=== PATIENT | male | born 1940 | race Caucasian/White ===

== ENCOUNTER 2017-07-28 09:10 | Emergency (ER) | payer MEDICARE ==
[~2017-07-28] VITALS: Ht 177.8 cm; Wt 89.4 kg
[2017-07-28] MEDS ORDERED: HYDROMORPHONE 1MG/1ML INJ IV STA (09:52)
[2017-07-28] MEDS ORDERED: ONDANSETRON HCL INJ 2 MG/ML VIAL IV STA (09:52)
[2017-07-28] MEDS ORDERED: DIGOXIN125 MCG PO (09:53)
[2017-07-28] MEDS ORDERED: ATORVASTATIN CA20 MG PO (09:53)
[2017-07-28] MEDS ORDERED: AMLODIPINE BESYL5 MG PO (09:53)
[2017-07-28] MEDS ORDERED: OMEPRAZOLE40 MG PO (09:53)
[2017-07-28] MEDS ORDERED: eliquis PO (09:53)
[2017-07-28] MEDS ORDERED: LEVOTHYROXINE50 MCG PO (09:53)
[2017-07-28 10:47] LABS: BASOPHILS % 0.2 % (0.0-1.0); EOSINOPHILS % 0.3 % (0.0-6.0); HEMOGLOBIN 14.5 g/dL (14.0-18.0); LYMPHOCYTES # (AUTO) 2.4 (1.0-3.2); LYMPHOCYTES % 23.5 % (18.0-39.1); MEAN CORPUSCULAR HEMOGLOBIN 30.8 pg (28-32); MEAN CORPUSCULAR HGB CONC 34.5 g/dL (31-35); MEAN CORPUSCULAR VOLUME 89.2 fL (81-99); MONOCYTES # (AUTO) 0.9 (0.2-0.8); MONOCYTES % 8.4 % (4.4-11.3); NEUTROPHILS # (AUTO) 6.9 (2.1-6.9); NEUTROPHILS % 67.1 % (38.7-80.0); PLATELET COUNT 196 x10e3/uL (140-360); RED BLOOD COUNT 4.71 x10e6/uL (4.3-5.7); RED CELL DISTRIBUTION WIDTH 14.1 % (11.7-14.4)
--- NOTE | 2017-07-28 10:49 | Diagnostic Imaging Report ---
History: Low back pain Comparison studies: None Technique: Axial images were obtained through the lumbar spine were obtained. Coronal and sagittal images reconstructed from the axial data. Intravenous contrast: None Findings: The usual 5 non-rib bearing lumbar vertebral bodies are present. Alignment: Normal lordosis. Mild leftward curvature centered at L2-3 Soft tissues: 2.8 cm right adrenal nodule with a Hounsfield value of 20 (series 4 image 16). Paraspinal muscles: Unremarkable. Sacroiliac joints: Mild degenerative changes Vertebrae: No fractures, infection or neoplasm. Degenerative changes: L1-L2: Moderately degenerated greater on the right Patent spinal canal and foramina. No discontinuation. L2-L3: Mildly degenerated disc on the right. Mild spinal canal stenosis due to a disc bulge and facet arthrosis. No significant foraminal stenosis. L3-L4: Relatively normal disc. Moderate spinal canal stenosis due to a disc bulge and mild facet arthrosis. Patent foramina. L4-L5: Mildly degenerated disc. Moderate spinal canal stenosis due to a disc bulge and facet arthrosis. Patent foramina. L5-S1: Mildly degenerated disc. Patent spinal canal. No significant foraminal stenosis in spite of moderate facet arthrosis. IMPRESSION: No acute abnormalities. No fractures or subluxations. Degenerative changes, 1. Mild left curvature centered at L2-3 2. Mildly degenerated discs also on the right from L1 through S1. 3. Moderate degenerative spinal canal stenosis at L3-4 and L4-5. 4. No significant foraminal stenosis 5. No disc herniation 6. Indeterminant 2.8 cm right adrenal nodule. Further workup with adrenal protocol CT or comparison to old films to evaluate for stability is recommended. Signed by: Dr. Abel Goss M.D. on 07/28/2017 5:51 PM
[2017-07-28 10:59] LABS: INR 1.32; PARTIAL THROMBOPLASTIN TIME 32.1 seconds (23.8-35.5); PROTHROMBIN TIME 15.4 seconds (11.9-14.5)
[2017-07-28 11:04] LABS: ANION GAP 11.2 mmol/L (8-16); BLOOD UREA NITROGEN 15 mg/dL (7-26); BUN/CREATININE RATIO 19 (6-25); CALCIUM 9.6 mg/dL (8.4-10.2); CARBON DIOXIDE 23 mmol/L (22-29); CHLORIDE 109 mmol/L (98-107); CREATININE, SERUM 0.81 mg/dL (0.72-1.25); EST GLOMERULAR FILTRATION RATE > 60 ML/MIN (60-); GLUCOSE 103 mg/dL (74-118); POTASSIUM 4.2 mmol/L (3.5-5.1); SODIUM 139 mmol/L (136-145)
[2017-07-28] MEDS ORDERED: KETOROLAC TROMETHAMINE 30 MG/ML VIAL IV STA (12:40)
== END 2017-07-28 13:43 | disposition home or self-care (01) ==
LOC: ER 09:10
DX: M54.5 Low back pain (principal); S39.012A Strain of muscle, fascia and tendon of lower back, initial encounter; I10 Essential (primary) hypertension; I48.91 Unspecified atrial fibrillation; E03.9 Hypothyroidism, unspecified
CPT/HCPCS: 36415; 72131; 80048; 85025; 85610; 85730; 99284; J1170; J1885; J2405

== ENCOUNTER → 2017-10-07 | Outpatient (CLI) | payer MEDICARE ==
[~2017-10-07] MED LIST: AMLODIPINE BESYL5 MG PO; ATORVASTATIN CA20 MG PO; DIGOXIN125 MCG PO; IOPAMIDOL 370 MG/ML 200 ML INFUS..BTL INJ ONE; LEVOTHYROXINE50 MCG PO; OMEPRAZOLE40 MG PO; SODIUM CHLORIDE 0.9% 50ML 50 ML ONE; eliquis PO
[2017-10-07 10:15] LABS: BLOOD UREA NITROGEN 17 mg/dL (7-26); BUN/CREATININE RATIO 18 (6-25); CREATININE, SERUM 0.93 mg/dL (0.72-1.25); EST GLOMERULAR FILTRATION RATE > 60 ML/MIN (60-)
--- NOTE | 2017-10-07 11:42 | Diagnostic Imaging Report ---
EXAM: CT Abdomen WITHOUT and WITH contrast INDICATION: \S\ADRENAL NODULE COMPARISON: None. TECHNIQUE: Abdomen was scanned utilizing a multidetector helical scanner from the lung base to the iliac crest before and after administration of IV contrast. Coronal and sagittal reformations were obtained. Routine protocol was performed. Scan was performed when during portal venous phase. IV CONTRAST: 100 mL of Isovue-370 ORAL CONTRAST: Water COMPLICATIONS: None RADIATION DOSE: Total DLP: 1011.71 mGy*cm Estimated effective dose: (DLP x 0.015 x size factor) mSv CTDIvol has been reviewed. It is below the limits set by the Radiation Protocol Committee (RPC). FINDINGS: LINES and TUBES: None. LOWER THORAX: Cardiac lead in the right ventricle. Left basilar atelectasis. HEPATOBILIARY: No focal hepatic lesions. No biliary ductal dilation. GALLBLADDER: Absent SPLEEN: No splenomegaly. PANCREAS: No focal masses or ductal dilatation. ADRENALS: Right adrenal 2.2 cm nodule measures 17 HU (pre-), 86 HU (venous), and 34 HU (delay) with absolute washout of 75.7% compatible with adenoma. No left adrenal nodules KIDNEYS/URETERS: Kidneys enhance symmetrically. No hydronephrosis. There are scattered too small to characterize hypodensities, likely benign. No stones. GI TRACT: No abnormal distention, wall thickening, or evidence of bowel obstruction. LYMPH NODES: No lymphadenopathy. VESSELS: There is mild atherosclerotic disease in the aorta and major arterial branches. PERITONEUM / RETROPERITONEUM: No free air or fluid. BONES: Unremarkable. SOFT TISSUES: Unremarkable. IMPRESSION: Right adrenal nodule is compatible with an adenoma. Signed by: DR. Bassem Avitia MD on 10/07/2017 11:39 AM
== END ==
LOC: CT 09:32
PROVIDERS: ATTEND Internal Medicine
DX: M54.5 Low back pain (principal); R19.09 Other intra-abdominal and pelvic swelling, mass and lump; R93.8 Abnormal findings on diagnostic imaging of other specified body structures
CPT/HCPCS: 36415; 74170; 82565; 84520; Q9967

== ENCOUNTER → 2019-04-16 | Outpatient (CLI) | payer MEDICARE ==
[~2019-04-16] MED LIST changes: +SODIUM CHLORIDE 0.9% 500ML 500 ML ONE
[2019-04-16 09:00] LABS: CREATININE, SERUM 1.2 mg/dL (0.72-1.25)
--- NOTE | 2019-04-16 10:23 | Diagnostic Imaging Report ---
EXAM: CT Abdomen and Pelvis WITH contrast INDICATION: ^[id number] ^0930 ^GEN ABD PAIN COMPARISON: CT abdomen 10/07/2017 TECHNIQUE: Abdomen and pelvis were scanned utilizing a multidetector helical scanner from the lung base to the pubic symphysis after administration of IV contrast. Coronal and sagittal reformations were obtained. Routine protocol was performed. Scan was performed when during portal venous phase. IV CONTRAST: 100 mL of Isovue 370 ORAL CONTRAST: Water COMPLICATIONS: None RADIATION DOSE: Total DLP: 612 mGy*cm Estimated effective dose: (DLP x 0.015 x size factor) mSv CTDIvol has been reviewed. It is below the limits set by the Radiation Protocol Committee (RPC). Dose modulation, iterative reconstruction, and/or weight based adjustment of the mA/kV was utilized to reduce the radiation dose to as low as reasonably achievable. FINDINGS: LINES and TUBES: None. LOWER THORAX: Few tiny micronodules in the lung bases are unchanged. A 1.8 x 1.9 cm left basilar subpleural masslike opacity (image 17) is not significantly changed in size and appearance when compared to the previous study from September 2017. HEPATOBILIARY: No focal hepatic lesions. No biliary ductal dilation. GALLBLADDER: Surgically absent. SPLEEN: No splenomegaly. PANCREAS: No focal masses or ductal dilatation. ADRENALS: Unchanged 2.2 cm right adrenal nodule consistent with an adenoma. No left adrenal nodule. KIDNEYS/URETERS: Kidneys enhance symmetrically. No hydronephrosis. No cystic or solid mass lesions. No stones. GI TRACT: Questionable focal thickening of the fundal posterior mucosa (image 20 series 2). No obvious bowel mass or evidence of bowel obstruction. Sigmoid diverticulosis. PELVIC ORGANS/BLADDER: Minimal nonspecific urinary bladder wall thickening. Grossly unremarkable prostate gland. LYMPH NODES: No lymphadenopathy. VESSELS: Scattered vascular calcifications. PERITONEUM / RETROPERITONEUM: No free air or fluid. BONES: No acute osseous abnormality. SOFT TISSUES: Small fat-containing left inguinal hernia. IMPRESSION: 1. Questionable focal gastric fundal mucosal thickening. Given the provided history of abdominal pain, further evaluation with upper endoscopy to exclude gastric mass is suggested. 2. Otherwise, no acute abdominal or pelvic abnormality. 3. Nonspecific 1.8 x 1.9 cm left basilar subpleural opacity is unchanged in size when compared to the previous study from 2017. A follow-up CT scan in 6 months is recommended to document 2 year stability. 4. Unchanged right adrenal adenoma. Signed by: Elie Quinteros MD on 04/16/2019 10:20 AM
== END ==
LOC: CT 08:16
PROVIDERS: ATTEND Internal Medicine
DX: R10.84 Generalized abdominal pain (principal)
CPT/HCPCS: 36415; 74177; 82565; 84520; J7040; Q9967

== ENCOUNTER → 2019-05-02 | Day surgery (SDC) | payer MEDICARE ==
[~2019-05-02] MED LIST changes: +AMIODARONE HCL200 MG PO; +FENTANYL CITRATE/PF 100MCG/2 ML INJ ONE; -IOPAMIDOL 370 MG/ML 200 ML INFUS..BTL INJ ONE; +PROPOFOL IV EMULSION 10 MG/ML 50 ML VIAL ONE; -SODIUM CHLORIDE 0.9% 500ML 500 ML ONE; -SODIUM CHLORIDE 0.9% 50ML 50 ML ONE
--- OUTSIDE RECORDS SUMMARY | 2019-05-02 07:02 | XMS REPORT ---
Author Author [facility] Address Unknown Phone Unavailable Care Team Providers Care Oyster Culler Name Role Phone SEAMUS JULIAN Unavailable Unavailable Ale ALVARADO Unavailable Unavailable Problems This patient has no known problems. Allergies, Adverse Reactions, Alerts This patient has no known allergies or adverse reactions. Medications This patient has no known medications. Results Test Description Test Time Test Comments Text Results Atomic Results Result Comments CT ABDOMEN/PELVIS W 2019-04-16 10:12:00 [facility] [address] [address] Patient Name: LILI PARIS MR #: [id number] : 1940 Age/Sex: 78/M Req #: [id number] Adm Physician: Ordered by: SEAMUS JULIAN MD Report #: [id number] Location: CT Room/Bed: Procedure: [id number] CT/CT ABDOMEN/PELVIS W Exam Date: 04/16/19 Exam Time: 929 REPORT STATUS: Signed EXAM: CT Abdomen and Pelvis WITH contrast INDICATIO N: [id number] GEN ABD PAIN COMPARISON: CT abdomen 10/07/2017 TECHNIQUE: Abdomen and pelvis were scanned utilizing a multidetector helical scanner from the lung base to the pubic symphysis after administration of IV contrast. Coronal and sagittal reformations were obtained. Routine protocol was performed. Scan was performed when during portal venous phase. IV CONTRAST: 100 mL of Isovue 370 ORAL CONTRAST: Water COMPLICATIONS: None RADIATION DOSE: Total DLP: 612 mGy*cm Estimated effective dose: (DLP x 0.015 x size factor) mSv CTDIvol has been reviewed. It is below the limits set by the Radiation Protocol Committee (RPC). Dose modulation, iterative reconstruction, and/or weight based adjustment of the mA/kV was utilized to reduce the radiation dose to as low as reasonably achievable. FINDINGS: LINES and TUBES: None. LOWER THORAX: Few tiny micronodules in the lung bases are unchanged. A 1.8 x 1.9 cm left basilar subpleural masslike opacity (image 17) is not significantly changed in size and appearance when compared to the previous study from September 2017. HEPATOBILIARY: No focal hepatic lesions. No biliary ductal dilation. GALLBLADDER: Surgically absent. SPLEEN: No splenomegaly. PANCREAS: No focal masses or ductal dilatation. ADRENALS: Unchanged 2.2 cm right adrenal nodule consistent with an adenoma. No left adrenal nodule. KIDNEYS/URETERS: Kidneys enhance symmetrically. No hydronephrosis. No cystic or solid mass lesions. No stones. GI TRACT: Questionable focal thickening of the fundal posterior mucosa (image 20 series 2). No obvious bowel mass or evidence of bowel obstruction. Sigmoid diverticulosis. PELVIC ORGANS/BLADDER: Minimal nonspecific urinary bladder wall thickening. Grossly unremarkable prostate gland. LYMPH NODES: No lymphadenopathy. VESSELS: Scattered vascular calcifications. PER ITONEUM / RETROPERITONEUM: No free air or fluid. BONES: No acute osseous abnormality. SOFT TISSUES: Small fat-containing left inguinal hernia. IMPRESSION: 1. Questionable focal gastric fundal mucosal thickening. Given the provided history of abdominal pain, further evaluation with upper endoscopy to exclude gastric mass is suggested. 2. Otherwise, no acute abdominal or pelvic abnormality. 3. Nonspecific 1.8 x 1.9 cm left basilar subpleural opacity is unchanged in size when compared to the previous study from 2017. A follow-up CT scan in 6 months is recommended to document 2 year stability. 4. Unchanged right adrenal adenoma. Signed by: Deepak Olguin MD on 04/16/2019 10:20 AM Dictated By: DEEPAK OLGUIN MD 1020 Transcribed By: WILNER on 04/16/19 1020 COPY TO: SEAMUS JULIAN MD CT ABDOMEN WOW 2017-10-07 11:27:00 [facility] [address] [address] Patient Name: LILI PARIS MR #: [id number] : 1940 Age/Sex: 77/M Req #: [id number] Adm Physician: Ordered by: SEAMUS JULIAN MD Report #: [id number] Location: CT Room/Bed: Procedure: [id number] CT/CT ABDOMEN WOW Exam Date: 10/07/17 Exam Time: 1020 REPORT STATUS: Signed EXAM: CT Abdomen WITHOUT and WITH contrast INDICATION: COMPARISON: None. TECHNIQUE: Abdomen was scanned utilizing a multidetector helical scanner from the lung base to the iliac crest before and after administration of IV contrast. Coronal and sagittal reformations were obtained. Routine protocol was performed. Scan was performed when during portal venous phase. IV CONTRAST: 100 mL of Isovue-370 ORAL C ONTRAST: Water COMPLICATIONS: None RADIATION DOSE: Total DLP: 1011.71 mGy*cm Estimated effective dose: (DLP x 0.015 x size factor) mSv CTDIvol has been reviewed. It is below the limits set by the Radiation Protocol Committee (RPC). FINDINGS: LINES and TUBES: None. LOWER THORAX: Cardiac lead in the right ventricle. Left basilar atelectasis. HEPATOBILIARY: No focal hepatic lesions. No biliary ductal dilation. GALLBLADDER: Absent SPLEEN: No splenomegaly. PANCREAS: No focal masses or ductal dilatation. ADRENALS: Right adrenal 2.2 cm nodule measures 17 HU (pre-), 86 HU (venous), and 34 HU (delay) with absolute washout of 75.7% compatible with adenoma. No left adrenal nodules KIDNEYS/URETERS: Kidneys enhance symmetrically. No hydronephrosis. There are scattered too small to characterize hypodensities, likely benign. No stones. GI TRACT: No abnormal distention, wall thickening, or evidence of bowel obstruction. LYMPH NODES: No lymphadenopathy. VESSELS: There is mild atherosclerotic disease in the aorta and major arterial branches. PERITONEUM / RETROPERITONEUM: No free air or fluid. BONES: Unremarkable. SOFT TISSUES: Unremarkable. IMPRESSION: Right adrenal nodule is compatible with an adenoma. Signed by: DR. Bassem Del Castillo MD on 10/07/2017 11:39 AM Dictated By: BASSEM DEL CASTILLO MD 113 Transcribed By: WILNRE on 10/07/17 113 COPY TO: SEAMUS JULIAN MD CT LUMBAR SPINE WO 2017-07-28 10:40:[address] [address] Patient Name: LILI PARIS MR #: [id number] : 1940 Age/Sex: 77/M Req #: [id number] Adm Physician: Ordered by: CHAR ALVARADO MD Report #: [id number] Location: ER Room/Bed: Procedure: [id number] CT/CT LUMBAR SPINE WO Exam Date: 07/28/17 Exam Time: 1015 REPORT STATUS: Signed History: Low back pain Comparison studies: None Technique: Axial images were obtained through the lumbar spine were obtained. Coronal and sagittal images reconstructed from the axial data. Intravenous contrast: None Findings: The usual 5 non-rib bearing lumbar vertebral bodies are present. Alignment: Normal lordosis. Mild leftward curvature centered at L2-3 Soft tissues: 2.8 cm right adrenal nodule with a Hounsfield value of 20 (series 4 image 16). Paraspinal muscles: Unremarkable. Sacroiliac joints: Mild degenerative changes Vertebrae: No fractures, infection or neoplasm. Degenerative changes: L1-L2: Moderately degenerated greater on the right Patent spinal canal and foramina. No discontinuation. L2-L3: Mildly degenerated disc on the right. Mild spinal canal stenosis due to a disc bulge and facet arthrosis. No significant foraminal stenosis. L3-L4: Relatively normal disc. Moderate spinal canal stenosis due to a disc bulge and mild facet arthrosis. Patent foramina. L4-L5: Mildly degenerated disc. Moderate spinal canal stenosis due to a disc bulge and facet arthrosis. Patent foramina. L5-S1: Mildly degenerated disc. Patent spinal canal. No significant foraminal stenosis in spite of moderate facet arthrosis. IMPRESSION: No acute abnormalities. No fractures or subluxations. Degenerative changes, 1. Mild left curvature centered at L2-3 2. Mildly degenerated discs also on the right from L1 through S1. 3. Moderate degenerative spinal canal stenosis at L3-4 and L4-5. 4. No significant foraminal stenosis 5. No disc herniation 6. Indeterminant 2.8 cm right adrenal nodule. Further workup with adrenal protocol CT or comparison to old films to evaluate for stability is recommended. Signed by: Dr. Abel Goss M.D. on 07/28/2017 5:51 PM Dictated By: ABEL GOSS MD, MD 50 Transcribed By: WILNER on 07/28/171750 COPY TO: CHAR ALVARADO MD
[2019-05-02 08:45] VITALS: BP 138/82
--- NOTE | 2019-05-02 11:24 | Operative Report ---
DATE OF PROCEDURE: 05/02/2019 SURGEON: Cory Sheets MD PROCEDURES PERFORMED: Esophagogastroduodenoscopy with biopsies. INDICATIONS FOR EGD: Bloating, nausea, and vomiting. MEDICATIONS: The patient was done under MAC. Please see anesthesiologist's note. PROCEDURE IN DETAIL: With the patient in left lateral decubitus position, a flexible fiberoptic Olympus gastroscope was introduced into the esophagus under direct visualization without any difficulty. Some focal varicosities were noted in the esophagus without active bleeding or stigmata of recent hemorrhage. The scope was then advanced with ease into the stomach traversing a small sliding hiatal hernia. Mucosa overlying the antrum and the body revealed some patchy erythema and moderate edema, and biopsies were obtained, sent to stain for H pylori. There were some several nodules noted in the body of the stomach and those were biopsied. The pylorus was of normal contour and shape, it was intubated with ease and the scope was advanced all the way to the second portion of the duodenum. There was a prominent fold noted in the second portion of the duodenum, distal to the ampulla and that was biopsied. The scope was then withdrawn back into the stomach and retroflexed, mucosa overlying the fundus and cardia appeared to be within normal limits. The scope was then straightened out, it was subsequently withdrawn. The patient tolerated the procedure well. IMPRESSION: 1. Focal varicosities, esophagus without active bleeding or stigmata of recent hemorrhage. 2. Small sliding hiatal hernia. 3. Gastritis, biopsied, biopsies sent to stain for Helicobacter pylori. 4. Gastric nodules, body, biopsies obtained. 5. Prominent fold 2nd portion of the duodenum distal to the ampulla, biopsied. PLAN: Follow up histology. I initiate Protonix 40 mg one p.o. q.a.m. a.c., Carafate 1 g p.o. a.c. t.i.d. and at bedtime. Cory Sheets MD [facility] /[id number] cc: MD Sukhjinder Martinez MD
== END | disposition home or self-care (01) ==
LOC: OR 05:54
PROVIDERS: ATTEND Internal Medicine Gastroenterology
DX: K29.70 Gastritis, unspecified, without bleeding (principal); I85.00 Esophageal varices without bleeding; K31.89 Other diseases of stomach and duodenum; K21.9 Gastro-esophageal reflux disease without esophagitis; K44.9 Diaphragmatic hernia without obstruction or gangrene; R19.7 Diarrhea, unspecified; K85.90 Acute pancreatitis without necrosis or infection, unspecified; I10 Essential (primary) hypertension; E78.5 Hyperlipidemia, unspecified; I44.0 Atrioventricular block, first degree; I48.91 Unspecified atrial fibrillation; N20.0 Calculus of kidney; E03.9 Hypothyroidism, unspecified; M54.9 Dorsalgia, unspecified; R05 Cough; Z01.810 Encounter for preprocedural cardiovascular examination; Z79.02 Long term (current) use of antithrombotics/antiplatelets; Z95.0 Presence of cardiac pacemaker
CPT/HCPCS: 43239; 88305; 88312; 93005; J2704; J3010

== ENCOUNTER → 2019-07-30 | Outpatient (CLI) | payer MEDICARE, OTHER ==
[~2019-07-30] MED LIST changes: -FENTANYL CITRATE/PF 100MCG/2 ML INJ ONE; -PROPOFOL IV EMULSION 10 MG/ML 50 ML VIAL ONE
--- NOTE | 2019-07-30 16:44 | Diagnostic Imaging Report ---
Small bowel follow-through Comparison: None Clinical History: Diarrhea for the past few months Total number of images submitted: Multiple Burning Supervisor radiographs were obtained. After oral ingestion of barium, overhead photospot x-ray images acquired periodically until the contrast medium across the ileocecal valve. Spot compression views of the areas of interest were obtained additionally if needed. Report: Burning Supervisor: 5 lumbar type vertebrae. 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 Surgical amber suggestive of cholecystectomy. No calculi. Lung bases unremarkable. Pelvis unremarkable. There is quick passage of the orally administered barium into proximal jejunum. No gross filling defects or mucosal fold abnormality seen in the stomach and duodenum. The orally administered contrast medium crosses the ileocecal valve at 4 hours film. There is no small bowel obstruction. The mucosal fold pattern of small bowel is unremarkable. There is no large gross intraluminal filling defect. There is no extrinsic mass effect on the small bowel. Terminal ileum and the Ileocecal valve is not visualized. Impression: Unremarkable small bowel follow through study. Signed by: Manish Lagos MD on 07/30/2019 4:41 PM
== END ==
LOC: DX 11:07
PROVIDERS: ATTEND Internal Medicine Gastroenterology
DX: R19.7 Diarrhea, unspecified (principal)
CPT/HCPCS: 74250; 87635

== ENCOUNTER → 2020-06-11 | Outpatient (CLI) | payer MEDICARE | LOC: CT 07:09 | PROVIDERS: ATTEND Internal Medicine | DX: M54.30 Sciatica, unspecified side (principal) | CPT/HCPCS: 72131 ==

== ENCOUNTER → 2021-03-24 | Day surgery (SDC) | payer MEDICARE ==
[2021-03-20 09:05] LABS: BASOPHILS % 0.2 % (0.0-1.0); EOSINOPHILS # (AUTO) 0.1 (0.0-0.4); EOSINOPHILS % 1.9 % (0.0-6.0); HEMATOCRIT 42.6 % (38.2-49.6); HEMOGLOBIN 13.7 g/dL (14.0-18.0); LYMPHOCYTES # (AUTO) 2.2 (1.0-3.2); LYMPHOCYTES % 45.7 % (18.0-39.1); MEAN CORPUSCULAR HEMOGLOBIN 30.6 pg (28-32); MEAN CORPUSCULAR HGB CONC 32.2 g/dL (31-35); MEAN CORPUSCULAR VOLUME 95.1 fL (81-99); MONOCYTES # (AUTO) 0.4 (0.2-0.8); MONOCYTES % 8.3 % (4.4-11.3); NEUTROPHILS # (AUTO) 2.1 (2.1-6.9); NEUTROPHILS % 43.7 % (38.7-80.0); PLATELET COUNT 158 x10e3/uL (140-360); RED BLOOD COUNT 4.48 x10e6/uL (4.3-5.7); RED CELL DISTRIBUTION WIDTH 13.4 % (11.7-14.4)
[~2021-03-24] MED LIST changes: +BP MED PO; +EPHEDRINE SULFATE INJ 50 MG/ML VIAL ONE; +GLUCAGON FOR INJ 1 MG VIAL ONE; +HYOSCYAMINE SULFATE 0.5 MG/ML INJ ONE; +PANTOPRAZOLE SO40 MG PO; +POVIDONE IODINE 0.05% 0.05 % ML PO ONE; +PROPOFOL IV EMULSION 10 MG/ML 20 ML VIAL ONE
[2021-03-24 13:37] VITALS: BP 125/85
== END | disposition home or self-care (01) ==
LOC: OR 10:33
PROVIDERS: ATTEND Internal Medicine Gastroenterology
DX: K29.70 Gastritis, unspecified, without bleeding (principal); D12.2 Benign neoplasm of ascending colon; D12.3 Benign neoplasm of transverse colon; K51.50 Left sided colitis without complications; I85.00 Esophageal varices without bleeding; K21.9 Gastro-esophageal reflux disease without esophagitis; K44.9 Diaphragmatic hernia without obstruction or gangrene; K64.8 Other hemorrhoids; Z71.3 Dietary counseling and surveillance; I48.91 Unspecified atrial fibrillation; E03.9 Hypothyroidism, unspecified; I10 Essential (primary) hypertension; Z01.812 Encounter for preprocedural laboratory examination; Z20.822 Contact with and (suspected) exposure to COVID-19; Z79.02 Long term (current) use of antithrombotics/antiplatelets; Z79.899 Other long term (current) drug therapy; Z68.29 Body mass index [BMI] 29.0-29.9, adult; Z95.0 Presence of cardiac pacemaker
CPT/HCPCS: 36415; 45380; 45384; 45385; 85025; 88305; 88312; U0002; 43239; 45378; J1610; J1980

== ENCOUNTER → 2021-11-20 | Outpatient (CLI) | payer MEDICARE ==
[~2021-11-20] MED LIST changes: -EPHEDRINE SULFATE INJ 50 MG/ML VIAL ONE; -GLUCAGON FOR INJ 1 MG VIAL ONE; -HYOSCYAMINE SULFATE 0.5 MG/ML INJ ONE; +IOPAMIDOL 370 MG/ML 100 ML INFUS..BTL INJ ONE; -POVIDONE IODINE 0.05% 0.05 % ML PO ONE; -PROPOFOL IV EMULSION 10 MG/ML 20 ML VIAL ONE
[2021-11-20 08:50] LABS: CREATININE, SERUM 1.07 mg/dL (0.72-1.25)
== END ==
LOC: CT 07:45
PROVIDERS: ATTEND Internal Medicine Gastroenterology
DX: R10.9 Unspecified abdominal pain (principal); E86.0 Dehydration; I48.91 Unspecified atrial fibrillation
CPT/HCPCS: 36415; 74177; 82565; 84520; Q9967

== ENCOUNTER 2022-05-27 17:38 | Emergency (ER) | payer MEDICARE ==
[~2022-05-27] VITALS: Ht 177.8 cm; Wt 89.4 kg
[~2022-05-27 17:38] MED LIST changes: +ALBUTEROL2.5 MG/3 M NEB; +AUGMENTIN 500-1 EACH PO; +AZITHROMYCIN250 MG PO; +BENZONATATE100 MG PO; +COMPRESSOR NEB1 EACH; -IOPAMIDOL 370 MG/ML 100 ML INFUS..BTL INJ ONE; +PROAIR DIGIHAL90 MCG INH
[2022-05-27 19:21] VITALS: BP 137/82
== END 2022-05-27 19:23 | disposition home or self-care (01) ==
LOC: ER 18:01
DX: S01.111A Laceration without foreign body of right eyelid and periocular area, initial encounter (principal); W17.89XA Other fall from one level to another, initial encounter; Y92.89 Other specified places as the place of occurrence of the external cause; Z79.01 Long term (current) use of anticoagulants; I10 Essential (primary) hypertension; E78.5 Hyperlipidemia, unspecified; I48.91 Unspecified atrial fibrillation; E03.9 Hypothyroidism, unspecified; K21.9 Gastro-esophageal reflux disease without esophagitis
CPT/HCPCS: 70450; 72125; 99283

== ENCOUNTER 2024-09-29 06:45 | Emergency (ER) | payer MEDICARE ==
[~2024-09-29] VITALS: Ht 177.8 cm; Wt 89.4 kg
[2024-09-29 08:04] LABS: BASOPHILS % 0.2 % (0.0-1.0); EOSINOPHILS % 0.0 % (0.0-6.0); LYMPHOCYTES % 17.7 % (18.0-39.1); MONOCYTES % 16.5 % (4.4-11.3); NEUTROPHILS % 65.4 % (38.7-80.0); RED CELL DISTRIBUTION WIDTH 15.6 % (11.7-14.4)
[2024-09-29 08:17] LABS: INR 1.26
[2024-09-29 08:27] LABS: CORONAVIRUS COVID-19 AG NEGATIVE (NEGATIVE)
[2024-09-29 08:28] LABS: EST GLOMERULAR FILTRATION RATE 61.0 ML/MIN (>=60)
[2024-09-29 09:09] LABS: EPITHELIAL CELLS,URINE MODERATE /LPF; LEUKOCYTE ESTERASE ,URINE NEGATIVE (NEGATIVE); PROTEIN,URINE DIPSTICK 1+ (NEGATIVE); URINE UROBILINOGEN 0.2 mg/dL (0.2 - 1)
[2024-09-29] MEDS: SODIUM CHLORIDE 0.9% 500ML 500 ML IV ONE (09:33)
[2024-09-29 09:36] VITALS: TEMP 98.1
[2024-09-29] MEDS ORDERED: MEDROL4 M2 PO (10:58)
[2024-09-29] MEDS ORDERED: CEFDINIR300 MG PO (11:05)
[2024-09-29 11:23] VITALS: PULSE 70; RESP 18; O2SAT 97
== END 2024-09-29 11:25 | disposition home or self-care (01) ==
LOC: ER 07:47
DX: R05.9 Cough, unspecified (principal); J06.9 Acute upper respiratory infection, unspecified; I10 Essential (primary) hypertension; I48.91 Unspecified atrial fibrillation; E78.5 Hyperlipidemia, unspecified; K21.9 Gastro-esophageal reflux disease without esophagitis; E03.9 Hypothyroidism, unspecified; R94.31 Abnormal electrocardiogram [ECG] [EKG]; Z96.653 Presence of artificial knee joint, bilateral
CPT/HCPCS: 36415; 71046; 80053; 81001; 82550; 83735; 83880; 84484; 85025; 85610; 85730; 87040; 87086; 87426; 93005; 99283; J7040

== ENCOUNTER 2024-10-01 04:07 | Emergency (ER) | payer MEDICARE, OTHER ==
[~2024-10-01] VITALS: Ht 177.8 cm; Wt 89.8 kg
[~2024-10-01 04:07] MED LIST changes: +CEFDINIR300 MG PO; +MEDROL4 M2 PO
[2024-10-01] MEDS ORDERED: SODIUM CHLORIDE FLUSH 10 ML SYR IV PRN (04:30)
[2024-10-01 04:35] LABS: BASOPHILS % 0.2 % (0.0-1.0); EOSINOPHILS % 1.1 % (0.0-6.0); LYMPHOCYTES % 39.2 % (18.0-39.1); MONOCYTES % 14.2 % (4.4-11.3); NEUTROPHILS % 45.1 % (38.7-80.0); RED CELL DISTRIBUTION WIDTH 15.7 % (11.7-14.4)
[2024-10-01 04:53] LABS: EST GLOMERULAR FILTRATION RATE 72.0 ML/MIN (>=60)
[2024-10-01 04:53] LABS: CORONAVIRUS COVID-19 AG POSITIVE (NEGATIVE)
[2024-10-01 05:00] VITALS: TEMP 98.4
[2024-10-01 06:00] VITALS: PULSE 70; RESP 21
[2024-10-01] MEDS ORDERED: PAXLOVID 150-11 EAC2 PO (07:14)
[2024-10-01] MEDS ORDERED: PREDNISONE20 MG PO (07:14)
[2024-10-01] MEDS ORDERED: VENTOLIN HFA18 GM INH (07:14)
[2024-10-01 07:50] VITALS: BP 142/93; PULSE 70; RESP 19; O2SAT 96
== END 2024-10-01 07:50 | disposition home or self-care (01) ==
LOC: ER 04:11
DX: R06.02 Shortness of breath (principal); U07.1 COVID-19; R05.9 Cough, unspecified; I10 Essential (primary) hypertension; I48.91 Unspecified atrial fibrillation; E78.5 Hyperlipidemia, unspecified; E03.9 Hypothyroidism, unspecified; K21.9 Gastro-esophageal reflux disease without esophagitis; Z95.810 Presence of automatic (implantable) cardiac defibrillator; Z96.653 Presence of artificial knee joint, bilateral
CPT/HCPCS: 36415; 71250; 80053; 83735; 83880; 84484; 85025; 93005; 94760; 99283

== ENCOUNTER → 2024-11-13 | Day surgery (SDC) | payer MEDICARE, OTHER ==
[2024-11-06 09:49] LABS: BASOPHILS % 0.1 % (0.0-1.0); EOSINOPHILS % 1.4 % (0.0-6.0); LYMPHOCYTES % 19.1 % (18.0-39.1); MONOCYTES % 7.4 % (4.4-11.3); NEUTROPHILS % 71.6 % (38.7-80.0); RED CELL DISTRIBUTION WIDTH 16.0 % (11.7-14.4)
[~2024-11-13] MED LIST changes: +ARICEPT10 MG PO; +ASPIRIN81 MG PO; +FLOMAX0.4 MG PO; +GLUCAGON FOR INJ 1 MG VIAL ONE; +HYOSCYAMINE SULFATE 0.5 MG/ML INJ ONE; +LACTATED RINGER'S 1,000 ML ONE; +LIDOCAINE HCL 2% LOCAL INJ 5 ML SDV VIAL INJ ONE; +LIPITOR20 MG PO; +LYRICA50 MG PO; +METOCLOPRAMIDE HCL 10 MG/2ML VIAL ONE; +PAXLOVID 150-11 EAC2 PO; +POTASSIUM CHLO10 ME1 PO; +PREDNISONE20 MG PO; +PROPOFOL IV EMULSION 10 MG/ML 20 ML VIAL ONE; +PROPOFOL IV EMULSION 50 ML IV ONE; +VENTOLIN HFA18 GM INH; +ZEGERID OTC 201 EACH
[2024-11-13 13:48] VITALS: TEMP 97.5
[2024-11-13 14:30] VITALS: BP 136/92; PULSE 69; RESP 16; O2SAT 97
== END | disposition home or self-care (01) ==
LOC: OR 10:34
PROVIDERS: ATTEND Internal Medicine Gastroenterology
DX: K29.80 Duodenitis without bleeding (principal); K29.50 Unspecified chronic gastritis without bleeding; I85.00 Esophageal varices without bleeding; K44.9 Diaphragmatic hernia without obstruction or gangrene; K31.7 Polyp of stomach and duodenum; D12.2 Benign neoplasm of ascending colon; D12.5 Benign neoplasm of sigmoid colon; K63.5 Polyp of colon; R63.4 Abnormal weight loss; Z68.25 Body mass index [BMI] 25.0-25.9, adult; K57.30 Diverticulosis of large intestine without perforation or abscess without bleeding; K64.8 Other hemorrhoids; I10 Essential (primary) hypertension; E03.9 Hypothyroidism, unspecified; E78.00 Pure hypercholesterolemia, unspecified; I48.91 Unspecified atrial fibrillation; Z86.16 Personal history of COVID-19; Z95.0 Presence of cardiac pacemaker; Z79.82 Long term (current) use of aspirin; Z79.890 Hormone replacement therapy; Z79.899 Other long term (current) drug therapy; Z80.0 Family history of malignant neoplasm of digestive organs; Z01.810 Encounter for preprocedural cardiovascular examination; Z01.812 Encounter for preprocedural laboratory examination
CPT/HCPCS: 36415; 43239; 45385; 85025; 88305; 93005; J1610; J1980; J2003; J2470; J2704 ×2; J2765; J7121

== ENCOUNTER → 2024-11-26 | Outpatient (REF) | payer OTHER ==
[~2024-11-26] MED LIST changes: -GLUCAGON FOR INJ 1 MG VIAL ONE; -HYOSCYAMINE SULFATE 0.5 MG/ML INJ ONE; +IOPAMIDOL 370 MG/ML 100 ML INFUS..BTL INJ ONE; -LACTATED RINGER'S 1,000 ML ONE; -LIDOCAINE HCL 2% LOCAL INJ 5 ML SDV VIAL INJ ONE; -METOCLOPRAMIDE HCL 10 MG/2ML VIAL ONE; -PROPOFOL IV EMULSION 10 MG/ML 20 ML VIAL ONE; -PROPOFOL IV EMULSION 50 ML IV ONE
[2024-11-26 14:11] LABS: EST GLOMERULAR FILTRATION RATE 79.0 ML/MIN (>=60)
== END ==
LOC: CT 13:40
PROVIDERS: ATTEND Nurse Practitioner
DX: R10.30 Lower abdominal pain, unspecified (principal)
CPT/HCPCS: 36415; 74177; 82565; 84520; Q9967